=== PATIENT | male | born 1935 | race African-American/Black ===

== ENCOUNTER 2018-11-09 12:38 | Emergency (ER) | payer MEDICARE ==
--- NOTE | 2018-11-09 13:02 | RADIOLOGY REPORT (SQ) ---
EXAM DESCRIPTION: CT HEAD WITHOUT COMPLETED DATE/TIME: 11/09/2018 12:46 pm REASON FOR STUDY: STROKE ALERT COMPARISON: None. TECHNIQUE: Axial images acquired through the brain without intravenous contrast. Images reviewed wi th bone, brain and subdural windows. Additional sagittal and coronal reconstructions were generated. Images stored on PACS. All CT scanners at this facility use dose modulation, iterative reconstruction, and/or weight based d osing when appropriate to reduce radiation dose to as low as reasonably achievable (ALARA). [facility]: Dose Right [facility]: CareDose [facility]: Dose Right [facility]: Teradose 4D [facility]: [facility] RADIATION DOSE: mGy. LIMITATIONS: None. FINDINGS: VENTRICLES: Prominent. CEREBRUM: No masses. No hemorrhage. No midline shift. No evidence of large vascular territory infa rct. Nonspecific areas of periventricular and subcortical hypoattenuation, likely sequelae of microa ngiopathic disease. Small more focal areas of hypoattenuation within the bilateral basal ganglia, li minda chronic lacunar infarcts, but technically age indeterminate. Bilateral basal ganglia mineraliza tion. CEREBELLUM: No masses. No hemorrhage. No alteration of density. No evidence for acute infarction. EXTRAAXIAL SPACES: Age-related involutional change. No fluid collections. No masses. ORBITS AND GLOBE: No intra- or extraconal masses. Normal contour of globe without masses. CALVARIUM: No fractures. Sclerosis in trabecular thickening within the left mastoid air cells. PARANASAL SINUSES: Fluid within the left mastoid air cells. Remaining visualized paranasal sinuses a nd right mastoid air cells are clear. . SOFT TISSUES: No mass or hematoma. OTHER: No other significant finding. IMPRESSION: 1. No evidence of intracranial hemorrhage or large vascular territory infarct. 2. Nonspecific white matter changes, likely sequelae of microangiopathic disease. Additional more f ocal areas of hypoattenuation in the bilateral basal ganglia, likely chronic lacunar infarcts but vaughn hnically age indeterminate. 3. Left mastoid effusion with associated bony sclerosis, possibly secondary to chronic effusion. EVIDENCE OF ACUTE STROKE: Age-indeterminate lacunar infarcts Pertinent positive or negative findings of the imaging study reported as a CRITICAL EXAM to DESTIN LOTT MD at12:56 on 11/09/2018. Category of Critical Exam: Code stroke TECHNICAL DOCUMENTATION: JOB ID: [id number] Quality ID # [id number]: Final reports with documentation of one or more dose reduction techniques (e.g., Au tomated exposure control, adjustment of the mA and/or kV according to patient size, use of iterative reconstruction technique) 2010 [employer]- All Rights Reserved Reading location - IP/workstation name: [email or web address]
[2018-11-09 13:03] LABS: INTERNATIONAL RATION (INR) 1.21; PARTIAL THROMBOPLASTIN TIME 20.7 SEC (23.5-35.8)
--- NOTE | 2018-11-09 13:04 | RADIOLOGY REPORT (SQ) ---
EXAM DESCRIPTION: CHEST SINGLE VIEW COMPLETED DATE/TIME: 11/09/2018 12:47 pm REASON FOR STUDY: STROKE ALERT COMPARISON: None. EXAM PARAMETERS: NUMBER OF VIEWS: One view. TECHNIQUE: Single frontal radiographic view of the chest acquired. RADIATION DOSE: NA LIMITATIONS: None. FINDINGS: LUNGS AND PLEURA: Patchy right basilar opacities with small subpulmonic effusion. Chronic bilateral interstitial age related changes. No pneumothorax. MEDIASTINUM AND HILAR STRUCTURES: No masses. Contour normal. HEART AND VASCULAR STRUCTURES: Enlarged cardiac silhouette. Aortic atherosclerosis. BONES: Decreased mineralization. No acute findings. HARDWARE: None in the chest. OTHER: No other significant finding. IMPRESSION: Patchy right basilar airspace disease with small subpulmonic effusion suspicious for pne umonia. TECHNICAL DOCUMENTATION: JOB ID: [id number] [employer]- All Rights Reserved Reading location - IP/workstation name: [email or web address]
[2018-11-09 13:06] LABS: PROTHROMBIN TIME 15.9 SEC (11.4-15.4)
[2018-11-09] MEDS ORDERED: ALTEPLASE INJ 100 MG VIAL ONE (13:22)
[2018-11-09 13:29] LABS: ALANINE AMINOTRANSFERASE 26 U/L (21-72); ALBUMIN 3.9 g/dL (3.5-5.0); ALKALINE PHOSPHATASE 67 U/L (38-126); ANION GAP 10 (5-19); ASPARTATE AMINO TRANSFERASE 42 U/L (17-59); BILIRUBIN,DIRECT 0.4 mg/dL (0.0-0.4); BILIRUBIN,TOTAL 1.7 mg/dL (0.2-1.3); BLOOD UREA NITROGEN 32 mg/dL (7-20); CALCIUM 9.2 mg/dL (8.4-10.2); CARBON DIOXIDE 26 mmol/L (22-30); CHLORIDE 107 mmol/L (98-107); CREATINE KINASE 109 U/L (55-170); GLUCOSE 225 mg/dL (75-110); POTASSIUM 3.4 mmol/L (3.6-5.0); SODIUM 142.7 mmol/L (137-145)
--- NOTE | 2018-11-09 13:32 | ER Document Report ---
ED General - General Chief Complaint: S/S of Possible Stroke Stated Complaint: POSSIBLE STROKE Time Seen by Provider: 11/09/18 12:55 Mode of Arrival: Stretcher Information source: Relative Notes: 83-year-old man with a history of CHF, atrial fibrillation who is visiting from out of town (patient is from [place]) who is brought into the emergency room with facial drooping and weakness. The patient is brought in by his daughter who states that normally he ambulates without difficulty and talks without difficulty. She states he was normal state of health at 11 AM he went to take a nap. She states that a half an hour later when he woke up he was drooling on the right side and could not ambulate. She brought him to the emergency room. Patient was brought immediately back to his CAT scan. I initiated my evaluation in the CT scanner. TRAVEL OUTSIDE OF THE [place] IN LAST 30 DAYS: No - HPI Onset: Just prior to arrival Onset/Duration: Sudden Quality of pain: No pain Severity: None Pain Level: Denies Associated symptoms: denies: Chills, Fever, Shortness of breath Exacerbated by: Denies Relieved by: Denies Similar symptoms previously: No Recently seen / treated by doctor: No - Related Data Allergies/Adverse Reactions: No Known Allergies Allergy (Unverified 11/09/18 13:45) Past Medical History - General Information source: Relative - Social History Smoking Status: Never Smoker Cigarette use (# per day): No Chew tobacco use (# tins/day): No Frequency of alcohol use: None Drug Abuse: None Lives with: Family Family History: None Patient has suicidal ideation: No Patient has homicidal ideation: No - Past Medical History Cardiac Medical History: Reports: Hx Atrial Fibrillation, Hx Congestive Heart F ailure, Hx Hypertension Pulmonary Medical History: Reports: None EENT Medical History: Reports: None Neurological Medical History: Denies: Hx Cerebrovascular Accident, Hx Seizures Endocrine Medical History: Reports: None Renal/ Medical History: Reports: None Malignancy Medical History: Reports None GI Medical History: Reports: None Musculoskeletal Medical History: Reports None Skin Medical History: Reports None Psychiatric Medical History: Reports: None Infectious Medical History: Reports: None Past Surgical History: Reports: Other - Cataract surgery, prostate surgery Review of Systems - Review of Systems Constitutional: denies: Chills, Fever EENT: No symptoms reported Cardiovascular: denies: Chest pain, Palpitations, Heart racing Respiratory: No symptoms reported Gastrointestinal: No symptoms reported Genitourinary: No symptoms reported Male Genitourinary: No symptoms reported Musculoskeletal: No symptoms reported Skin: No symptoms reported Hematologic/Lymphatic: No symptoms reported Neurological/Psychological: See HPI Physical Exam - Vital signs Vitals: Pulse Resp BP Pulse Ox 83 22 H 161/79 H 100 11/09/18 12:54 11/09/18 12:54 11/09/18 12:54 11/09/18 12:54 Notes: Physical exam: GENERAL: Blood pressure is 154/93, pulse is 86, respiratory rate 26, O2 sat 95% protheses 2 L nasal cannula). Fingerstick was 186 HEAD: Atraumatic, normocephalic. EYES: Pupils equal round and reactive to light, extraocular movements intact, sclera anicteric, conjunctiva are normal. ENT: TMs normal, nares patent, oropharynx clear without exudates. Moist mucous membranes. NECK: Normal range of motion, supple without obvious mass or JVD. LUNGS: Breath sounds clear to auscultation bilaterally and equal. No wheezes rales or rhonchi. HEART: Regular rate and rhythm without murmurs, rubs or gallops. ABDOMEN: Soft, normoactive bowel sounds. No tenderness to palpation. No guarding, no rebound. No masses appreciated. EXTREMITIES: Normal range of motion, no pitting or edema. No clubbing or cyanosis. NEUROLOGICAL: Patient is alert and he is nonverbal. This is a significant difference from his baseline as his daughter states that normally he is verbal. NIH: Patient does appear alert and responsive (0) He is unable to answer both month and age due to expressive a aphasia. He is able to close his eyes and open them and is able to make a fist. He does appear to look back and forth with horizontal gaze. Visual dong is unable to be performed because of his expressive aphasia. Patient does have a right side facial droop (3). Patient does have right upper extremity motor drift but it does not touch the bed (1) Patient does have motor leg drift of the right lower extremity it comes close but does not touch the bed (1) Patient is able to come close with finger to nose with the left or nonaffected side. He is not able to come close with the affected side. Sensory is unable to be performed because of his expressive aphasia. Language: He is essentially mute (3) Dysarthria: Essentially mute (3) No obvious extinction SKIN: Warm, Dry, normal turgor, no rashes or lesions noted. Course - Re-evaluation Re-evalutation: 11/09/18 13:34 Note: I discussed the CT report with the radiologist: No acute bleed or stroke. There is lacunar basal ganglier disease that it is unclear whether this is acute or not so it will be read as age-indeterminate. There is no CT to compare. Otherwise, there is some maxillary sinus disease. I had the radiologist look at the chest x-ray and it does show some airspace disease in the right base with a possible effusion. Patient has had no fevers or chills or cough as per the daughter. He does have a history of CHF. I discussed the case with Dr. Vela (neurology in [place]) who did recommend TPA. I discussed at great length with the patient regarding TPA and the risk-benefit of such an intervention. I have told her that the risks are bleeding and that if the patient bleeds into the brain that he will not do well. I also stated that TPA has helped in cases with stroke. Based upon the patient's presentation, the area at risk appears large given that the patient has an expressive aphasia right facial droop right-sided weakness. TPA has been initiated. Patient will be transferred to [facility] in [place] 11/09/18 13:41 Patient's blood pressure before TPA was 154/93 with a pulse of 86 Note: Patient evaluated while transport is here. TPA is still running in. 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 He remains with an expressive aphasia and a right facial droop. 11/09/18 17:09 - Vital Signs Vital signs: Temp Pulse Resp BP Pulse Ox 90 25 H 159/95 H 100 11/09/18 13:45 11/09/18 13:45 11/09/18 13:45 11/09/18 13:45 - Laboratory Result Diagrams: 11/09/18 12:45 11/09/18 12:45 Laboratory results interpreted by me: 11/09/18 11/09/18 11/09/18 12:45 12:45 12:45 PT 15.9 H APTT 20.7 L Potassium 3.4 L BUN 32 H Creatinine 1.44 H Est GFR ( Amer) 57 L Est GFR (Non-Af Amer) 47 L Glucose 225 H Total Bilirubin 1.7 H NT-Pro-B Natriuret Pep 99608 H - Diagnostic Test Radiology reviewed: Image reviewed, Reports reviewed - CT of the head shows no acute bleed. Chest x-ray does show some airspace disease on the right base. - EKG Interpretation by [facility]: NSR - We could EKG shows sinus rhythm with frequent PVCs, evidence of LVH, ventricular rate 86. Critical Care Note - Critical Care Note Total time excluding time spent on procedures (mins): 60 Discharge - Discharge Clinical Impression: Acute CVA Condition: Serious Disposition: [facility]
[2018-11-09 13:36] LABS: CREATINE KINASE MB 1.23 ng/mL (<4.55); TROPONIN I 0.015 ng/mL
[2018-11-09 14:11] VITALS: BP 159/95
--- NOTE | 2018-11-10 10:21 | EKG REPORT ---
SEVERITY:- ABNORMAL ECG - SINUS RHYTHM MULTIFORM VENTRICULAR PREMATURE COMPLEXES LVH WITH SECONDARY REPOLARIZATION ABNORMALITY BORDERLINE PROLONGED QT INTERVAL : Confirmed by: Trell Henson 10-Nov-2018 10:21:29
== END 2018-11-09 17:36 | disposition short-term general hospital (02) ==
LOC: ER 12:38
DX: I63.9 Cerebral infarction, unspecified (principal); R47.01 Aphasia; R29.810 Facial weakness; I11.9 Hypertensive heart disease without heart failure; J98.4 Other disorders of lung; I49.3 Ventricular premature depolarization
CPT/HCPCS: 93005; 99291; 96374; 36415; 82553; 82962; 82550; 85610; 85730; 80053; 84484; 83880; 71045; 70450; 93010; J2997